=== PATIENT | female | born 1985 | race African-American/Black ===

== ENCOUNTER 2016-12-17 10:43 | Emergency (ER) | payer MEDICAID ==
[~2016-12-17] VITALS: Ht 149.9 cm; Wt 117.9 kg
[2016-12-17] MEDS ORDERED: TdaP Vaccine 0.5ml Syr IM ONE (12:15)
[2016-12-17] MEDS ORDERED: KEFLEX500 MG ORAL (12:18)
[2016-12-17 12:47] VITALS: BP 124/85
--- NOTE | 2016-12-22 21:26 | Emergency Room Report ---
History of Present Illness General Chief Complaint: Laceration Source: Patient Present Illness HPI [id number] presents 4 days after accidentally stuck with alleged nail at a bar to outer left thigh. Unknown tetanus. Denies fever/chills, pus drainage from area. Assoc with some redness and swelling. Didnt apply OTC topical medication or take other meds. Allergies: Coded Allergies: No Known Allergies (Unverified , 12/17/16) Patient History Past Medical History: none Past Surgical History: none Pertinent Family History: none Social History: Denies: alcohol use, drug use, smoking Last Menstrual Period: 11/25/16 Now: No Immunizations: UTD Reviewed Nursing Documentation: PMH: Agreed, PSxH: Agreed Nursing Documentation-PMH Past Medical History: No History, Except For Hx Asthma: Yes Review of Systems All Other Systems: negative except mentioned in HPI Physical Exam Vital Signs Date Time Temp Pulse Resp B/P Pulse Ox O2 Delivery O2 Flow Rate FiO2 12/17/16 11:01 97.9 77 14 119/82 98 Room Air Sp02 EP Interpretation: reviewed, normal General Appearance: normal inspection, well appearing, no apparent distress, alert, GCS 15, non-toxic Head: normocephalic, atraumatic Eyes: bilateral eye EOMI, bilateral eye PERRL ENT: normal ENT inspection, hearing grossly normal, normal voice Neck: normal inspection, full range of motion, supple, no bony tend Cardiovascular #1: regular rate, rhythm, no edema Gastrointestinal: normal inspection, normal bowel sounds, non tender, soft, no guarding, no hernia Genitourinary: no CVA tenderness Neurologic: normal inspection, alert, oriented x3, responsive, orthotist III-XII nml as tested, motor strength/tone normal, speech normal Psychiatric: normal inspection, judgement/insight normal, mood/affect normal Skin: other - left outter thigh: 1cm punctate wound with surrounding 1cm area of erythema. No pus drainage. Mild ttp to area. Lymphatic: normal inspection Medical Decision Making Diagnostic Impression: Primary Impression: Puncture wound ER Course Puncture wound with early cellulitis VSS. Afebrile No systemic signs or symptoms requiring additional labs, imaging, management in ED Will Tx empirically for cellulitis PMD followup DC home Last Vital Signs Date Time Temp Pulse Resp B/P Pulse Ox O2 Delivery O2 Flow Rate FiO2 12/17/16 12:47 75 14 124/85 99 Room Air 12/17/16 12:47 98.1 Status: improved Disposition: HOME, SELF-CARE Condition: Improved Scripts Cephalexin* (KEFLEX*) 500 Mg Capsule 500 MG ORAL Q6H for 7 Days, #28 CAP 0 Refills Prov: MARILEE PETER M.D. 12/17/16 Patient Instructions: Laceration Care, Adult Additional Instructions: - Keep area clean/dry - Take ALL antibiotics - Follow up with your doctor as needed MARILEE PETER M.D. December 22, 2016 21:26
== END 2016-12-17 12:50 | disposition home or self-care (01) ==
LOC: EMR 11:30
DX: S71.132A Puncture wound without foreign body, left thigh, initial encounter (principal); Z23 Encounter for immunization; W45.0XXA Nail entering through skin, initial encounter; Y93.9 Activity, unspecified; Y92.9 Unspecified place or not applicable; J45.909 Unspecified asthma, uncomplicated
CPT/HCPCS: 90471; 90715; 96372; 99284

== ENCOUNTER 2017-02-23 14:17 | Emergency (ER) | payer MEDICAID ==
[~2017-02-23] VITALS: Ht 149.9 cm; Wt 123.8 kg
[~2017-02-23 14:17] MED LIST: KEFLEX500 MG ORAL
[2017-02-23 15:39] VITALS: BP 126/76
[2017-02-23 16:04] LABS: BASOPHILS % (AUTO) 0.7 % (0.0-2.0); EOSINOPHILS % (AUTO) 0.5 % (0.0-3.0); LYMPHOCYTES % (AUTO) 23.3 % (20.0-45.0); MEAN CORPUSCULAR HEMOGLOBIN 18.6 PG (27.0-31.0); MEAN CORPUSCULAR HGB CONC 28.1 G/DL (32.0-36.0); MEAN CORPUSCULAR VOLUME 66 FL (80-99); MEAN PLATELET VOLUME 15.5 FL (6.5-10.1); MONOCYTES % (AUTO) 4.9 % (1.0-10.0); NEUTROPHILS % (AUTO) 70.6 % (45.0-75.0); PLATELET COUNT 237 K/UL (150-450); RED BLOOD COUNT 4.85 M/UL (4.20-5.40); WHITE BLOOD COUNT 6.1 K/UL (4.8-10.8)
[2017-02-23 16:20] LABS: PROTHROMBIN TIME 10.4 SEC (9.30-11.50)
[2017-02-23 16:26] LABS: ALANINE AMINOTRANSFERASE 10 U/L (3-33); ALBUMIN/GLOBULIN RATIO 0.7 (1.0-2.7); ANION GAP 12 (5-15); ASPARTATE AMINO TRANSFERASE 13 U/L (5-40); CALCIUM 9.4 mg/dL (8.6-10.2); CARBON DIOXIDE 25 mEQ/L (20-30); CHLORIDE 104 mEQ/L (98-107); CREATININE 0.8 mg/dL (0.5-0.9); GLOMERULAR FILTRATION RATE > 60 mL/min (>60); HEMOLYSIS 10; POTASSIUM 3.7 mEQ/L (3.4-4.9); SODIUM 141 mEQ/L (135-145); TOTAL PROTEIN 8.6 g/dL (6.6-8.7)
[2017-02-23 16:50] VITALS: BP 126/76
--- NOTE | 2017-02-23 21:45 | Emergency Room Report ---
History of Present Illness General Chief Complaint: Vaginal Source: Patient Present Illness HPI 31-year-old female presents to ED for vaginal bleeding x2 days. States that her PMD prescribed her control because she was having irregular prolonged periods. States that since starting the control she has had increased bleeding. Denies any pain. Did not take blood thinners. No other aggravating or relieving factors. Denies any other associated symptoms Allergies: Coded Allergies: No Known Allergies (Unverified , 12/17/16) Patient History Past Medical History: asthma Past Surgical History: none Pertinent Family History: none Social History: Denies: alcohol use, drug use, smoking Last Menstrual Period: Currently bleeding Now: No Immunizations: UTD Reviewed Nursing Documentation: PMH: Agreed, PSxH: Agreed Nursing Documentation-PMH Hx Asthma: Yes Review of Systems All Other Systems: negative except mentioned in HPI Physical Exam Vital Signs Date Time Temp Pulse Resp B/P Pulse Ox O2 Delivery O2 Flow Rate FiO2 02/23/17 14:44 98.4 85 16 126/76 98 Room Air Sp02 EP Interpretation: reviewed, normal General Appearance: no apparent distress, alert, GCS 15, non-toxic, obese Head: normocephalic, atraumatic Eyes: bilateral eye PERRL, bilateral eye normal inspection ENT: hearing grossly normal, normal pharynx, no angioedema, normal voice Neck: full range of motion, supple/symm/no masses Respiratory: chest non-tender, lungs clear, normal breath sounds, speaking full sentences Cardiovascular #1: regular rate, rhythm, no edema Cardiovascular #2: 2+ carotid (R), 2+ carotid (L), 2+ radial (R), 2+ radial (L) , 2+ dorsalis pedis (R), 2+ dorsalis pedis (L) Gastrointestinal: normal bowel sounds, non tender, soft, non-distended, no guarding, no rebound Rectal: deferred Genitourinary: normal inspection, no CVA tenderness Musculoskeletal: back normal, gait/station normal, normal range of motion, non- tender Neurologic: alert, oriented x3, responsive, motor strength/tone normal, sensory intact, speech normal Psychiatric: judgement/insight normal, memory normal, mood/affect normal, no suicidal/homicidal ideation Reflexes: 3+ bicep (R), 3+ bicep (L), 3+ tricep (R), 3+ tricep (L), 3+ knee (R) , 3+ knee (L) Skin: normal color, no rash, warm/dry, well hydrated Lymphatic: no adenopathy Medical Decision Making Diagnostic Impression: Primary Impression: Vaginal bleeding ER Course Hospital Course 31year-old F presents to ED with vaginal bleeding after starting control Differential diagnosis includes- ovarian cyst, torsion, ectopic , DUB Clinical course Patient placed on stretcher. After initial history and physical I ordered labs , IV fluids Labs - no leukocytosis, Hb/Hct stable, electrolytes ok, LFTs normal, UA unremarkable I discussed findings with patient. She will DC her control. Will followup with her PMD. I feel this is a highly complex case requiring extensive working including EKG/ Rhythm strip, Xray/CT/US, Blood/urine lab work, repeat exams while in ED, and administration of strong opiates/narcotics for pain control, admission to hospital or close patient follow up. Diagnosis - vaginal bleeding Stable and discharged to home. Followup with PMD. Return to ED if symptoms recur or worsen Labs Test 02/23/17 15:35 White Blood Count 6.1 K/UL (4.8-10.8) Red Blood Count 4.85 M/UL (4.20-5.40) Hemoglobin 9.0 G/DL (12.0-16.0) Hematocrit 32.1 % (37.0-47.0) Mean Corpuscular Volume 66 FL (80-99) Mean Corpuscular Hemoglobin 18.6 PG (27.0-31.0) Mean Corpuscular Hemoglobin Concent 28.1 G/DL (32.0-36.0) Red Cell Distribution Width 20.0 % (11.6-14.8) Platelet Count 237 K/UL (150-450) Mean Platelet Volume 15.5 FL (6.5-10.1) Neutrophils (%) (Auto) 70.6 % (45.0-75.0) Lymphocytes (%) (Auto) 23.3 % (20.0-45.0) Monocytes (%) (Auto) 4.9 % (1.0-10.0) Eosinophils (%) (Auto) 0.5 % (0.0-3.0) Basophils (%) (Auto) 0.7 % (0.0-2.0) Prothrombin Time 10.4 SEC (9.30-11.50) Prothromb Time International Ratio 1.0 (0.9-1.1) Activated Partial Thromboplast Time 29 SEC (23-33) Sodium Level 141 mEQ/L (135-145) Potassium Level 3.7 mEQ/L (3.4-4.9) Chloride Level 104 mEQ/L (98-107) Carbon Dioxide Level 25 mEQ/L (20-30) Anion Gap 12 (5-15) Blood Urea Nitrogen 11 mg/dL (7-23) Creatinine 0.8 mg/dL (0.5-0.9) Estimat Glomerular Filtration Rate > 60 mL/min (>60) Glucose Level 112 mg/dL (74-106) Calcium Level 9.4 mg/dL (8.6-10.2) Total Bilirubin 0.3 mg/dL (0.0-1.2) Aspartate Amino Transf (AST/SGOT) 13 U/L (5-40) Alanine Aminotransferase (ALT/SGPT) 10 U/L (3-33) Alkaline Phosphatase 74 U/L (35-104) Total Protein 8.6 g/dL (6.6-8.7) Albumin 3.8 g/dL (3.5-5.2) Globulin 4.8 g/dL Albumin/Globulin Ratio 0.7 (1.0-2.7) Last Vital Signs Date Time Temp Pulse Resp B/P Pulse Ox O2 Delivery O2 Flow Rate FiO2 02/23/17 16:50 98.4 89 16 126/76 98 Room Air Status: improved Disposition: HOME, SELF-CARE Condition: Stable Referrals: NON PHYSICIAN (PCP) Patient Instructions: Abnormal Uterine Bleeding, [id number] ARI ARNETT M.D. Feb 23, 2017 21:45
== END 2017-02-23 16:51 | disposition home or self-care (01) ==
LOC: EMR 16:14
DX: N93.9 Abnormal uterine and vaginal bleeding, unspecified (principal); J45.909 Unspecified asthma, uncomplicated
CPT/HCPCS: 36415; 80053; 85025; 85610; 85730; 86850; 86900; 86901; 96374

== ENCOUNTER 2018-10-08 13:40 | Emergency (ER) | payer MEDICAID ==
[~2018-10-08] VITALS: Ht 149.9 cm; Wt 137.0 kg
[2018-10-08] MEDS ORDERED: FERROUS SULFAT325 MG ORAL (13:50)
[2018-10-08] MEDS ORDERED: HYDROCHLOROTHIA25 MG ORAL (13:50)
[2018-10-08] MEDS ORDERED: VENTOLIN HFA18 GM INH (13:50)
[2018-10-08 13:52] VITALS: BP 116/75
[2018-10-08] MEDS ORDERED: IBUPROFEN600 MG ORAL (13:55)
--- NOTE | 2018-10-08 13:58 | Emergency Room Report ---
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 at the time she did not feel much discomfort she felt a mild cold However later in the evening she felt increased discomfort to the anterior shoulder Denies any focal weakness denies any chest pain or shortness of breath denies any other fall or trauma denies any neck pain denies any neuropathy Pain is worse with trying to flex her arm upward Allergies: Coded Allergies: No Known Allergies (Unverified , 12/17/16) Patient History Past Medical History: see triage record Pertinent Family History: none Last Menstrual Period: 05/2019 Now: No - Pt takes depo provera shot Reviewed Nursing Documentation: PMH: Agreed; PSxH: Agreed Nursing Documentation-PMH Past Medical History: No History, Except For Hx Asthma: Yes Review of Systems All Other Systems: negative except mentioned in HPI Physical Exam Vital Signs Date Time Temp Pulse Resp B/P (MAP) Pulse Ox O2 Delivery O2 Flow Rate FiO2 10/08/18 13:44 98.2 95 17 116/75 97 Room Air Sp02 EP Interpretation: reviewed, normal General Appearance: well appearing, no apparent distress Head: normocephalic, atraumatic Eyes: bilateral eye PERRL, bilateral eye EOMI ENT: hearing grossly normal, normal pharynx Neck: supple, no meningismus, no bony tend Respiratory: lungs clear, no retraction, no accessory muscle use Cardiovascular #1: regular rate, rhythm Gastrointestinal: non tender, soft Musculoskeletal: other - Some tenderness palpable to the left anterior shoulder worse with attempts of flexion upward otherwise no obvious clinical deformity equal information systems technician bilaterally sensory intact Neurologic: alert, oriented x3, responsive Skin: normal color, no rash Lymphatic: no adenopathy Medical Decision Making Diagnostic Impression: Primary Impression: shoulder sprain ER Course Patient's clinical exam and presentation is consistent with shoulder sprain other differentials such as rotator cuff injury musculoskeletal sprain/strain all considered Patient does not meet criteria for emergency imaging And is stable for close outpatient follow-up Last Vital Signs Date Time Temp Pulse Resp B/P (MAP) Pulse Ox O2 Delivery O2 Flow Rate FiO2 10/08/18 13:52 98.2 70 17 116/75 97 Room Air Status: unchanged Disposition: HOME, SELF-CARE Condition: Stable Scripts Ibuprofen* (MOTRIN*) 600 Mg Tablet 600 MG ORAL Q8H PRN for For Pain, #20 TAB 0 Refills Prov: John Jones DO 10/08/18 Departure Forms: Return to Work Return to Work in (Days): 2 Return to Work Date: Oct 11, 2018 Patient Instructions: Shoulder Sprain Additional Instructions: Patient is provided with the discharge instructions notified to follow up with primary doctor in the next 2-3 days otherwise return to the er with any worsening symptoms. Please note that this report is being documented using [employer] technology. This can lead to erroneous entry secondary to incorrect interpretation by the dictating instrument. John Jones DO Oct 08, 2018 13:58
[2018-10-08 14:00] VITALS: BP 120/82
== END 2018-10-08 14:00 | disposition home or self-care (01) ==
LOC: EMR 13:50
DX: S43.402A Unspecified sprain of left shoulder joint, initial encounter (principal); X50.9XXA Other and unspecified overexertion or strenuous movements or postures, initial encounter; Y92.89 Other specified places as the place of occurrence of the external cause; J45.909 Unspecified asthma, uncomplicated
CPT/HCPCS: 99282

== ENCOUNTER 2019-05-22 18:52 | Emergency (ER) | payer MEDICAID ==
[~2019-05-22] VITALS: Ht 151.1 cm; Wt 149.7 kg
[~2019-05-22 18:52] MED LIST changes: +FERROUS SULFAT325 MG ORAL; +HYDROCHLOROTHIA25 MG ORAL; +IBUPROFEN600 MG ORAL; +VENTOLIN HFA18 GM INH
[2019-05-22] MEDS ORDERED: VITAMIN D250000 UNI1 ORAL (19:01)
[2019-05-22] MEDS ORDERED: METFORMIN HCL500 M1 ORAL (19:01)
[2019-05-22] MEDS ORDERED: FUROSEMIDE20 M1 ORAL (19:01)
--- NOTE | 2019-05-22 19:21 | NUR ---
ED Nurse Note: pt walked in to ED due to pain on left knee for 2 weeks. reports going to the gym and hearing a 'pop'. pt states pain went away for a couple of days and pain returned. ao4. nad. vss.
[2019-05-22 19:23] VITALS: BP 130/83
--- NOTE | 2019-05-22 19:28 | NUR ---
ED Nurse Note: imaging at bedside.
--- NOTE | 2019-05-22 20:03 | Emergency Room Report ---
History of Present Illness General Chief Complaint: Pain Source: Medical Record Present Illness HPI 34-year-old female who is morbidly obese with no other significant past medical history here complaining of pain and swelling left knee that started few days ago after working out. Patient denies any direct fall or injury. Patient is rating pain 7 out of 10 without radiation. Denies tingling and numbness. Has taken Advil with minimal relief. Patient is morbidly obese and there is deformity of both knees due to obesity. However patient has full range of motion of her knees. Denies calf tenderness, numbness and tingling. Denies chest pain, shortness of breath, palpitation, and other associated symptoms. Allergies: Coded Allergies: No Known Allergies (Unverified , 12/17/16) Patient History Past Medical History: see triage record Past Surgical History: unable to obtain Pertinent Family History: none Last Menstrual Period: on depo shot Now: No Immunizations: UTD Reviewed Nursing Documentation: PMH: Agreed; PSxH: Agreed Nursing Documentation-PMH Past Medical History: No History, Except For Hx Asthma: Yes Review of Systems All Other Systems: negative except mentioned in HPI Physical Exam Vital Signs Date Time Temp Pulse Resp B/P (MAP) Pulse Ox O2 Delivery O2 Flow Rate FiO2 05/22/19 18:55 98.2 98 18 130/83 (99) 100 Room Air Sp02 EP Interpretation: reviewed, normal General Appearance: no apparent distress, alert, GCS 15, non-toxic, obese Head: normocephalic, atraumatic Eyes: bilateral eye normal inspection, bilateral eye PERRL ENT: hearing grossly normal, normal pharynx, no angioedema, normal voice Neck: full range of motion, supple/symm/no masses Respiratory: chest non-tender, lungs clear, normal breath sounds, no rhonchi, speaking full sentences Cardiovascular #1: regular rate, rhythm, no edema, no murmur Cardiovascular #2: 2+ dorsalis pedis (R), 2+ dorsalis pedis (L) Gastrointestinal: normal bowel sounds, non tender, soft, non-distended, no guarding, no rebound Musculoskeletal: back normal, gait/station normal, normal range of motion, non- tender, no calf tenderness, swelling - left knee Neurologic: alert, oriented x3, responsive, motor strength/tone normal, sensory intact, speech normal Psychiatric: normal inspection, judgement/insight normal Skin: no rash Lymphatic: normal inspection, no adenopathy Medical Decision Making PA Attestation All my diagnosis and treatment plans were reviewed ad discussed with my supervising physician Dr. Walker Diagnostic Impression: Primary Impression: Left knee sprain ER Course 34-year-old female who is morbidly obese with no other significant past medical history here complaining of pain and swelling left knee that started few days ago after working out. Patient denies any direct fall or injury. Patient is rating pain 7 out of 10 without radiation. Denies tingling and numbness. Has taken Advil with minimal relief. Patient is morbidly obese and there is deformity of both knees due to obesity. However patient has full range of motion of her knees. Denies calf tenderness, numbness and tingling. Denies chest pain, shortness of breath, palpitation, and other associated symptoms. Ddx considered but are not limited to: Knee sprain, strain, fracture, contusion , meniscus tear injury Vital signs: are WNL, pt. is afebrile H&PE are most consistent with: Ddx considered but are not limited to: Knee sprain, strain, fracture, contusion, meniscus tear injury Vital signs: are WNL, pt. is afebrile H&PE : knee sprain ORDERS: Knee x-ray, ibuprofen, Robaxin, lidocaine patch ER intervention: none DISCHARGE: At this time pt. is stable for d/c to home. Will provide printed patient care instructions, and any necessary prescriptions. Care plan and follow up instructions have been discussed with the patient prior to discharge. Advised patient to lose weight, take medication as directed avoid strenuous physical activity and follow-up with her primary care provider. Other X-Ray Diagnostic Results Other X-Ray Diagnostic Results : X-Ray ordered: left knee # of Views/Limited Vs Complete: 3 View Indication: Pain EP Interpretation: Yes PA Xray: Interpretation reviewed, by supervising MD, and agrees with findings. Interpretation: no dislocation, no soft tissue swelling, no fractures Impression: No acute disease Electronically Signed by: Inessa Asher PA-C Last Vital Signs Date Time Temp Pulse Resp B/P (MAP) Pulse Ox O2 Delivery O2 Flow Rate FiO2 05/22/19 19:23 98.2 98 18 130/83 100 Room Air Disposition: HOME, SELF-CARE Condition: Stable Scripts Methocarbamol* (ROBAXIN-500*) 500 Mg Tablet 500 MG ORAL TID, #10 TAB 0 Refills Prov: Inessa Rogers 05/22/19 Diclofenac Sodium (VOLTAREN) 100 Gm Gel..gram. 2 GM TP TID, #100 GM Prov: Inessa Rogers 05/22/19 Ibuprofen (Ibu) 800 Mg Tablet 800 MG PO TID, #21 TAB Prov: Inessa Rogers 05/22/19 Patient Instructions: Knee Sprain, [id number] Additional Instructions: Take medication as directed follow-up with your primary care provider avoid strenuous physical activity, weight loss highly recommended Inessa Rogers May 22, 2019 20:03
[2019-05-22] MEDS ORDERED: IBU800 MG PO (20:09)
[2019-05-22] MEDS ORDERED: VOLTAREN100 G1 TP (20:09)
[2019-05-22] MEDS ORDERED: ROBAXIN-500MG ORAL (20:09)
[2019-05-22 20:15] VITALS: BP 130/83
--- NOTE | 2019-05-22 20:15 | NUR ---
ER DISCHARGE NOTE: Patient is cleared to be discharged per ERMD, pt is aox4, on room air, with stable vital signs. pt was given dc and prescription instructions, pt was able to verbalize understanding, pt id band removed. pt is able to ambulate with steady gait. pt took all belongings.
--- NOTE | 2019-05-23 17:04 | Diagnostic Imaging Report ---
Indication: Left knee pain for 2 weeks Technique: 3 views of the left knee Comparison: None Findings: On the oblique view, there is an apparent soft tissue lucency projected medial to the proximal tibia. This is not evident on other images. No acute fractures. No dislocations. Joint spaces are preserved Impression: No acute bony trauma Soft tissue lucency. Suspected artifactual but correlation with clinical findings is recommended
== END 2019-05-22 20:15 | disposition home or self-care (01) ==
LOC: EMR 20:05
DX: S83.92XA Sprain of unspecified site of left knee, initial encounter (principal); J45.909 Unspecified asthma, uncomplicated; E66.01 Morbid (severe) obesity due to excess calories; Z68.44 Body mass index [BMI] 60.0-69.9, adult; X58.XXXA Exposure to other specified factors, initial encounter; Y93.89 Activity, other specified; Y92.9 Unspecified place or not applicable
CPT/HCPCS: 73562; Z7502; 99283

== ENCOUNTER 2019-11-12 18:15 | Emergency (ER) | payer MEDICAID ==
[~2019-11-12] VITALS: Ht 149.9 cm; Wt 145.1 kg
[~2019-11-12 18:15] MED LIST changes: +FUROSEMIDE20 M1 ORAL; +IBU800 MG PO; +METFORMIN HCL500 M1 ORAL; +ROBAXIN-500MG ORAL; +VITAMIN D250000 UNI1 ORAL; +VOLTAREN100 G1 TP
[2019-11-12 18:18] VITALS: BP 117/47
--- NOTE | 2019-11-12 18:26 | NUR ---
ED Nurse Note: Pt came in due to coughing since yesterday. Hx of asthma. AAO x4 ambulatory with non labored breathing.
--- NOTE | 2019-11-12 19:00 | NUR ---
HAND-OFF: Report given to Verónica GRANT.
--- NOTE | 2019-11-12 19:21 | Emergency Room Report ---
History of Present Illness General Chief Complaint: Upper Respiratory Illness Source: Patient Present Illness HPI 34-year-old female presents to the emergency department complaining of productive cough x2 days. Patient with history of asthma and states that she has been having to use her inhaler multiple times a day which is more than normal for her. Patient denies fevers or chills. She denies pain. Denies ST. Denies rhinorrhea. She reports that her cough is exacerbated upon breathing in 2 deeply. Patient states she also becomes short of breath after talking for a long time. Patient denies wheezing at this time. She states she does have good follow-up with her doctor however she came to the emergency department due to having colorful sputum production. Denies recent travel. Denies contact with persons who have tested positive for or are under investigation/quarantine for COVID-19. Patient reports she is up-to-date with her vaccinations. Allergies: Coded Allergies: No Known Allergies (Unverified , 12/17/16) COVID-19 Screening Contact w/high risk pt: No Recent Travel to affected area: No Experienced COVID-19 symptoms?: Yes COVID-19 symptoms experienced: Cough Patient History Past Medical History: see triage record Past Surgical History: none Pertinent Family History: none Now: No Immunizations: UTD Reviewed Nursing Documentation: PMH: Agreed; PSxH: Agreed Nursing Documentation-PMH Past Medical History: No History, Except For Hx Asthma: Yes Review of Systems All Other Systems: negative except mentioned in HPI Physical Exam Vital Signs Date Time Temp Pulse Resp B/P (MAP) Pulse Ox O2 Delivery O2 Flow Rate FiO2 11/12/19 18:18 99.1 106 20 117/47 (70) 95 Room Air Sp02 EP Interpretation: reviewed, normal General Appearance: no apparent distress, alert, GCS 15, non-toxic Head: normocephalic, atraumatic Eyes: bilateral eye normal inspection, bilateral eye PERRL ENT: hearing grossly normal, normal voice Neck: full range of motion Respiratory: chest non-tender, lungs clear, normal breath sounds, no rhonchi, no respiratory distress, no accessory muscle use, speaking full sentences, wheezing - mild, expiration, inspiration, other - Pt. persistently coughing with deep inhalations Cardiovascular #1: regular rate, rhythm, no edema, normal capillary refill Gastrointestinal: soft Musculoskeletal: normal range of motion, gait/station normal, non-tender Neurologic: alert, motor strength/tone normal, oriented x3, sensory intact, responsive, speech normal Psychiatric: judgement/insight normal Skin: normal color Lymphatic: no adenopathy Medical Decision Making PA Attestation Dr. Cortés is my supervising Physician whom patient management has been discussed with. Diagnostic Impression: Primary Impression: Bronchopneumonia ER Course 34-year-old female presents to the emergency department complaining of productive cough x2 days. Patient with history of asthma and states that she has been having to use her inhaler multiple times a day which is more than normal for her. Patient denies fevers or chills. She denies pain. Denies ST. Denies rhinorrhea. She reports that her cough is exacerbated upon breathing in 2 deeply. Patient states she also becomes short of breath after talking for a long time. Patient denies wheezing at this time. She states she does have good follow-up with her doctor however she came to the emergency department due to having colorful sputum production. Denies recent travel. Denies contact with persons who have tested positive for or are under investigation/quarantine for COVID-19. Patient reports she is up-to-date with her vaccinations. Ddx considered but are not limited to URI, pneumonia, PE, strep pharyngitis, meningitis, COVID-19 Vital signs: Pt.is afebrile VS are WNL H&PE are most consistent with bronchopneumonia ORDERS: none required at this time, the diagnosis is clinical ED INTERVENTIONS: None required at this time. DISCHARGE: At this time pt. is stable for d/c to home. Will provide printed patient care instructions, and any necessary prescriptions. Care plan and follow up instructions have been discussed with the patient prior to discharge. Last Vital Signs Date Time Temp Pulse Resp B/P (MAP) Pulse Ox O2 Delivery O2 Flow Rate FiO2 11/12/19 18:28 106 20 Room Air 11/12/19 18:18 99.1 117/47 95 Status: improved Disposition: HOME, SELF-CARE Condition: Stable Scripts Azithromycin* (ZITHROMAX*) 250 Mg Tablet 250 MG ORAL DAILY, #6 TAB 0 Refills Take two tables once daily for 1 day, then one tablet once daily for 4 days. Prov: Swati Wolfe 11/12/19 Prednisone* (PREDNISONE*) 20 Mg Tablet 40 MG ORAL DAILY for 5 Days, #10 TAB Prov: Swati Wolfe 11/12/19 Guaifenesin (Mucinex) 1,200 Mg Tab.er.12h 1200 MG PO Q12HR, #20 TAB Prov: Swati Wolfe 11/12/19 Albuterol Sulfate* (ALBUTEROL SULFATE MDI*) 8.5 Gm Hfa.aer.ad 2 PUFF INH Q3H, #1 INH 0 Refills Prov: Swati Wolfe 11/12/19 Codeine/Promethazine Hcl* (PROMETHAZINE-CODEINE SYRUP*) 118 Ml Syrup 5 ML ORAL Q6H PRN for For Cough, #120 ML 0 Refills Prov: Swati Wolfe 11/12/19 Referrals: NON PHYSICIAN (PCP) Departure Forms: Return to Work Return to Work Date: Nov 26, 2019 Other Restrictions: Self Quarantine x 2 weeks. NO unnecessary physicial exertion. Return to Full Activity: Nov 26, 2019 Work Restrictions: None Patient Instructions: Upper Respiratory Infection, Adult Additional Instructions: Take medications as directed. Follow up with a Primary Care Provider in 3 days, even if your symptoms have resolved. Return sooner to ED if new symptoms occur, or current symptoms become worse. Do not drink alcohol, drive, or operate heavy machinery while taking Cough Syrup as this may cause drowsiness. - Please note that this Emergency Department Report was dictated using [employer] manager technology software, occasionally this can lead to erroneous entry secondary to interpretation by the dictation equipment. Swati Wolfe Nov 12, 2019 19:21
[2019-11-12] MEDS ORDERED: ALBUTEROL SULF8.5 GM INH (19:23)
[2019-11-12] MEDS ORDERED: PROMETHAZINE-C118 M1 ORAL (19:23)
[2019-11-12] MEDS ORDERED: PREDNISONE20 MG ORAL (19:23)
[2019-11-12] MEDS ORDERED: MUCINEX1200 MG PO (19:23)
[2019-11-12 19:32] VITALS: BP 117/47
--- NOTE | 2019-11-12 19:32 | NUR ---
ER DISCHARGE NOTE: Patient is cleared to be discharged per ER PA, pt is aox4, on room air, with stable vital signs. pt was given dc and prescription instructions, pt was able to verbalize understanding, pt id band removed without complications. pt is able to ambulate with steady gait. pt took all belongings.
[2019-11-12] MEDS ORDERED: ZITHROMAX250 MG ORAL (20:13)
== END 2019-11-12 19:32 | disposition home or self-care (01) ==
LOC: EMR 18:59
DX: J18.9 Pneumonia, unspecified organism (principal)
CPT/HCPCS: 99282